=== PATIENT | male | born 1945 | race Caucasian/White ===

== ENCOUNTER 2025-01-20 08:30 | Emergency (ER) | payer MEDICARE, SELFPAY ==
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
[2025-01-20 08:39] VITALS: BP 132/83; PULSE 76; RESP 16; TEMP 36.6; O2SAT 96
== END 2025-01-20 09:29 | disposition home or self-care (01) ==
LOC: ER 09:30
PROVIDERS: Emergency Provider Emergency Medicine
DX: B02.9 Zoster without complications (principal)
CPT/HCPCS: 99283